=== PATIENT | female | born 1970 | race Two or more races ===

== ENCOUNTER 2024-11-27 18:04 | Emergency (ER) | payer BC, SELFPAY ==
[2024-11-27 18:05] VITALS: BMI 28.3
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
[2024-11-27 19:04] VITALS: BP 162/95; PULSE 81; RESP 18; TEMP 36.8; O2SAT 99
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
== END 2024-11-27 21:46 | disposition home or self-care (01) ==
PROVIDERS: Emergency Provider Emergency Medicine
DX: S50.12XA Contusion of left forearm, initial encounter (principal); S40.012A Contusion of left shoulder, initial encounter; V49.9XXA Car occupant (driver) (passenger) injured in unspecified traffic accident, initial encounter
CPT/HCPCS: 73030; 73090; 99283